=== PATIENT | male | born 1985 | race Caucasian/White ===

== ENCOUNTER 2021-09-15 14:57 | Emergency (ER) | payer OTHER ==
[2021-09-15] MEDS ORDERED: IBUPROFEN 600 MG TAB PO STA (15:44)
[2021-09-15] MEDS ORDERED: SODIUM CHLORIDE 0.9% 500 ML 500 ML IV ONE (15:46)
--- NOTE | 2021-09-15 15:51 | ED ---
General Adult HPI - General Chief complaint: Upper Respiratory Infection Stated complaint: Covid Positive,BRIAN Time Seen by Provider: 09/15/21 15:38 Source: RN notes reviewed, old records reviewed Mode of arrival: ambulatory Limitations: no limitations - History of Present Illness Initial comments: 36-year-old well-appearing male presents to the emergency room with fever, cough, congestion and body aches since last Thursday. He states that he tested positive on September 11 for coronavirus in a [facility]. He has not been vaccinated. He is requesting the monoclonal antibodies. He states he has been taking Tylenol and Motrin for fevers and body aches with no relief. He is also on clindamycin and Tylenol threes for a bad wisdom tooth. He denies any other medical history no ALLERGIES to medications. -: days(s) (7) Location: head, chest Radiation: non-radiation Severity scale (1-10): 4 Quality: aching (body aches) Consistency: constant Improves with: none Worsens with: none Associated Symptoms: cough, fever/chills, loss of appetite, malaise, nausea/vomiting, shortness of breath Treatments Prior to Arrival: NSAID, other (Clindamycin for a tooth infection, Tylenol 3, nsaids) - Related Data Home Medications Medication Instructions Recorded Confirmed Acetaminophen Tab [Tylenol Tab] 1,000 mg PO Q6HR PRN 09/15/21 09/15/21 Acetaminophen-Codeine 300-30mg 1 tab PO Q4-6H PRN 09/15/21 09/15/21 [Tylenol w/codeine #3] Ascorbic Acid/Multivit-Min 1,000 mg PO DAILY 09/15/21 09/15/21 [Emergen-C 1,000 mg Packet] Cholecalciferol [Vitamin D3 (25 25 mcg PO DAILY 09/15/21 09/15/21 Mcg = 1000 Iu)] Clindamycin HCl 300 mg PO TID 09/15/21 09/15/21 Ibuprofen [Advil] 400 mg PO Q8HR PRN 09/15/21 09/15/21 Multivitamins, Thera [Multivitamin 1 tab PO DAILY 09/15/21 09/15/21 (formulary)] guaiFENesin [Mucinex] 1,200 mg PO BID PRN 09/15/21 09/15/21 Allergies Allergy/AdvReac Type Severity Reaction Status Date / Time No Known Allergies Allergy Verified 09/15/21 17:09 Review of Systems ROS Statement: Those systems with pertinent positive or pertinent negative responses have been documented in the HPI. ROS Other: All systems not noted in ROS Statement are negative. Past Medical History Past Medical History: No Reported History History of Any Multi-Drug Resistant Organisms: None Reported Past Surgical History: No Surgical Hx Reported Past Psychological History: No Psychological Hx Reported Smoking Status: Former smoker Past Alcohol Use History: None Reported Past Drug Use History: None Reported General Exam Limitations: no limitations General appearance: alert, in no apparent distress Head exam: Present: atraumatic, normocephalic, normal inspection Eye exam: Present: normal appearance, EOMI ENT exam: Present: normal exam, normal oropharynx, mucous membranes moist Neck exam: Present: normal inspection, full ROM. Absent: tenderness, meningismus, lymphadenopathy, thyromegaly Respiratory exam: Present: rhonchi. Absent: respiratory distress, chest wall tenderness, accessory muscle use, decreased breath sounds Cardiovascular Exam: Present: tachycardia GI/Abdominal exam: Present: soft, normal bowel sounds. Absent: distended, tenderness, guarding, rebound, rigid Back exam: Present: normal inspection, full ROM. Absent: tenderness, CVA tenderness (R), CVA tenderness (L), rash noted Neurological exam: Present: alert, oriented X3, normal gait Psychiatric exam: Present: normal affect, normal mood Skin exam: Present: warm, dry, intact, normal color. Absent: rash, cyanosis, diaphoretic, petechiae, pallor Course Vital Signs 09/15/21 09/15/21 09/15/21 15:27 16:31 18:04 Temperature 101.8 F H 98.8 F Pulse Rate 113 H 82 Respiratory 24 20 20 Rate Blood Pressure 134/79 134/84 O2 Sat by Pulse 95 95 Oximetry Medical Decision Making - Medical Decision Making This is a well-appearing 36-year-old male that presents to the emergency room after testing positive for coronavirus September 11. His symptoms started September 08. He did send a copy of the positive results to the email given by the nurse. He was requesting the monoclonal antibody infusion. He tolerated the infusion well. His oxygen saturations 95%. Temperature is normal at discharge. He was instructed to return to the emergency room with any new or worsening symptoms. Vitamin C, vitamin D and seems to help with the pain support. Quarantine for 10 days from symptom onset and 24 hours without a fever. Case discussed with Dr. Wynn. Disposition Clinical Impression: COVID-19 Disposition: HOME SELF-CARE Condition: Good Instructions (If sedation given, give patient instructions): Coronavirus Disease 2019 (COVID-19) Additional Instructions: Take tylenol and/or Motrin as needed for body aches or fevers. Take vitamin C, vitamin D and zinc for immune health. Increase your fluid intake. Self quarantine for 10 days from symptom onset and 24 hours without a fever. Return to emergency room with any new or worsening symptoms. Is patient prescribed a controlled substance at d/c from ED?: No Referrals: None,Stated [Primary Care Provider] - 1-2 days
[2021-09-15] MEDS ORDERED: SOTROVIMAB (EUA) 500 MG in SODIUM CHLORIDE 0.9% 100 ML IVPB ONE (16:45)
[2021-09-15] MEDS ORDERED: SODIUM CHLORIDE 0.9% 50 ML IVPB ONE (16:45)
[2021-09-15 16:53] VITALS: RESP 20
[2021-09-15 18:05] VITALS: BP 134/84; PULSE 82; TEMP 98.8
== END 2021-09-15 18:32 | disposition home or self-care (01) ==
LOC: EC 14:57
DX: U07.1 COVID-19 (principal); Z87.891 Personal history of nicotine dependence
CPT/HCPCS: 99283; Q0247

== ENCOUNTER 2021-10-01 23:36 | Observation (INO) | payer OTHER ==
[2021-10-02] MEDS ORDERED: SODIUM CHLORIDE 0.9% 500 ML 500 ML IV STA (01:35)
--- NOTE | 2021-10-02 01:39 | ED ---
General Adult HPI - General Chief complaint: Chest Pain Stated complaint: feverish, anxiety Time Seen by Provider: 10/02/21 01:15 Source: patient Mode of arrival: EMS Limitations: no limitations - History of Present Illness Initial comments: This patient is a 36-year-old man who presents to be evaluated for constellation of symptoms that is been going on since the start of the month. The patient states that he had the onset of upper respiratory symptoms, cough, fevers and chills, headaches, body aches and had been diagnosed with [place] infection on September 11. He states that he was feeling a little worse, return here and was given the antibody infusion on September 15. Patient states that he has had symptoms going on since that time and then over the course of today he has felt warm sensation on his chest and he had a funny feeling in his left arm. The patient has not noted any leg pain or swelling. He has not had change in the cough. There has been no hemoptysis or dyspnea. -: days(s) Location: chest Radiation: extremity (Left arm) Quality: other (Warm sensation) Consistency: intermittent Improves with: none Worsens with: none Associated Symptoms: cough, fever/chills, headaches, malaise Treatments Prior to Arrival: none - Related Data Home Medications Medication Instructions Recorded Confirmed Acetaminophen Tab [Tylenol Tab] 1,000 mg PO Q6HR PRN 09/15/21 09/15/21 Acetaminophen-Codeine 300-30mg 1 tab PO Q4-6H PRN 09/15/21 09/15/21 [Tylenol w/codeine #3] Ascorbic Acid/Multivit-Min 1,000 mg PO DAILY 09/15/21 09/15/21 [Emergen-C 1,000 mg Packet] Cholecalciferol [Vitamin D3 (25 25 mcg PO DAILY 09/15/21 09/15/21 Mcg = 1000 Iu)] Clindamycin HCl 300 mg PO TID 09/15/21 09/15/21 Ibuprofen [Advil] 400 mg PO Q8HR PRN 09/15/21 09/15/21 Multivitamins, Thera [Multivitamin 1 tab PO DAILY 09/15/21 09/15/21 (formulary)] guaiFENesin [Mucinex] 1,200 mg PO BID PRN 09/15/21 09/15/21 Previous Rx's Medication Instructions Recorded Azithromycin [Zithromax Z-pack (6 250 mg PO DIRECTED #6 tab 10/02/21 tabs)] Dexamethasone 6 mg PO DAILY #14 tablet 10/02/21 Rivaroxaban [Xarelto Starter Pack] 0 mg PO DIRECTED 30 Days #1 10/02/21 packet Allergies Allergy/AdvReac Type Severity Reaction Status Date / Time No Known Allergies Allergy Verified 10/02/21 01:06 Review of Systems ROS Statement: Those systems with pertinent positive or pertinent negative responses have been documented in the HPI. ROS Other: All systems not noted in ROS Statement are negative. Constitutional: Reports: fever, chills, weakness Respiratory: Reports: cough. Denies: dyspnea, wheezes, hemoptysis Cardiovascular: Reports: as per HPI. Denies: palpitations, orthopnea, edema, syncope Gastrointestinal: Reports: diarrhea. Denies: abdominal pain, nausea, vomiting, constipation, melena, hematochezia Genitourinary: Denies: dysuria, hematuria Musculoskeletal: Reports: myalgia. Denies: back pain Skin: Denies: rash Neurological: Reports: headache. Denies: weakness, numbness Past Medical History Past Medical History: No Reported History History of Any Multi-Drug Resistant Organisms: None Reported Past Surgical History: No Surgical Hx Reported Past Psychological History: No Psychological Hx Reported Smoking Status: Former smoker Past Alcohol Use History: None Reported Past Drug Use History: None Reported General Exam General appearance: alert, in no apparent distress Head exam: Present: atraumatic, normocephalic Eye exam: Present: normal appearance. Absent: scleral icterus, conjunctival injection ENT exam: Present: normal oropharynx Neck exam: Present: normal inspection, full ROM Respiratory exam: Present: normal lung sounds bilaterally. Absent: respiratory distress, wheezes, rales, rhonchi, stridor Cardiovascular Exam: Present: regular rate, normal rhythm, normal heart sounds. Absent: systolic murmur, diastolic murmur, rubs, gallop GI/Abdominal exam: Present: soft. Absent: distended, tenderness, guarding, rebound, rigid Extremities exam: Present: normal inspection, normal capillary refill. Absent: pedal edema, calf tenderness Back exam: Present: normal inspection Neurological exam: Present: alert Skin exam: Present: warm, dry, intact, normal color. Absent: rash Course Vital Signs 10/02/21 01:08 Temperature 98.7 F Pulse Rate 94 Respiratory 20 Rate Blood Pressure 148/89 O2 Sat by Pulse 97 Oximetry EKG Findings - EKG Results: EKG: interpreted by ERMD, sinus rhythm (Rate 83 bpm), normal axis, normal QRS - Blocks, [place], Hypertrophy, ST Abn: Repolarization changes or abnormalities: Q-T interval prolongation Medical Decision Making - Lab Data Result diagrams: 10/02/21 02:16 10/02/21 02:16 Lab Results 10/02/21 10/02/21 10/02/21 Range/Units 02:16 02:16 02:16 WBC 9.0 (3.8-10.6) k/uL RBC 5.05 (4.30-5.90) m/uL Hgb 14.2 (13.0-17.5) gm/dL Hct 42.4 (39.0-53.0) % MCV 83.9 (80.0-100.0) fL MCH 28.0 (25.0-35.0) pg MCHC 33.4 (31.0-37.0) g/dL RDW 14.0 (11.5-15.5) % Plt Count 416 (150-450) k/uL MPV 6.6 Neutrophils % 53 % Lymphocytes % 31 % Monocytes % 11 % Eosinophils % 1 % Basophils % 1 % Neutrophils # 4.8 (1.3-7.7) k/uL Lymphocytes # 2.8 (1.0-4.8) k/uL Monocytes # 1.0 (0-1.0) k/uL Eosinophils # 0.1 (0-0.7) k/uL Basophils # 0.1 (0-0.2) k/uL PT 10.8 (9.0-12.0) sec INR 1.0 (<1.2) APTT 22.9 (22.0-30.0) sec D-Dimer 2.77 H (<0.60) mg/L FEU Sodium 136 L (137-145) mmol/L Potassium 4.2 (3.5-5.1) mmol/L Chloride 107 (98-107) mmol/L Carbon Dioxide 20 L (22-30) mmol/L Anion Gap 9 mmol/L BUN 14 (9-20) mg/dL Creatinine 0.67 (0.66-1.25) mg/dL Est GFR (CKD-EPI)AfAm >90 (>60 ml/min/1.73 sqM) Est GFR (CKD-EPI)NonAf >90 (>60 ml/min/1.73 sqM) Glucose 106 H (74-99) mg/dL Calcium 8.2 L (8.4-10.2) mg/dL Magnesium 2.0 (1.6-2.3) mg/dL Total Bilirubin 0.9 (0.2-1.3) mg/dL AST 57 (17-59) U/L ALT 157 H (4-49) U/L Alkaline Phosphatase 146 H (38-126) U/L Troponin I (0.000-0.034) ng/mL NT-Pro-B Natriuret Pep pg/mL Total Protein 6.8 (6.3-8.2) g/dL Albumin 3.5 (3.5-5.0) g/dL 10/02/21 10/02/21 Range/Units 02:16 02:16 WBC (3.8-10.6) k/uL RBC (4.30-5.90) m/uL Hgb (13.0-17.5) gm/dL Hct (39.0-53.0) % MCV (80.0-100.0) fL MCH (25.0-35.0) pg MCHC (31.0-37.0) g/dL RDW (11.5-15.5) % Plt Count (150-450) k/uL MPV Neutrophils % % Lymphocytes % % Monocytes % % Eosinophils % % Basophils % % Neutrophils # (1.3-7.7) k/uL Lymphocytes # (1.0-4.8) k/uL Monocytes # (0-1.0) k/uL Eosinophils # (0-0.7) k/uL Basophils # (0-0.2) k/uL PT (9.0-12.0) sec INR (<1.2) APTT (22.0-30.0) sec D-Dimer (<0.60) mg/L FEU Sodium (137-145) mmol/L Potassium (3.5-5.1) mmol/L Chloride (98-107) mmol/L Carbon Dioxide (22-30) mmol/L Anion Gap mmol/L BUN (9-20) mg/dL Creatinine (0.66-1.25) mg/dL Est GFR (CKD-EPI)AfAm (>60 ml/min/1.73 sqM) Est GFR (CKD-EPI)NonAf (>60 ml/min/1.73 sqM) Glucose (74-99) mg/dL Calcium (8.4-10.2) mg/dL Magnesium (1.6-2.3) mg/dL Total Bilirubin (0.2-1.3) mg/dL AST (17-59) U/L ALT (4-49) U/L Alkaline Phosphatase (38-126) U/L Troponin I <0.012 (0.000-0.034) ng/mL NT-Pro-B Natriuret Pep 17 pg/mL Total Protein (6.3-8.2) g/dL Albumin (3.5-5.0) g/dL Disposition Clinical Impression: COVID-19 Disposition: HOME SELF-CARE Instructions (If sedation given, give patient instructions): Coronavirus Disease 2019 (COVID-19) Prescriptions: Dexamethasone 6 mg PO DAILY #14 tablet Rivaroxaban [Xarelto Starter Pack] 0 mg PO DIRECTED 30 Days #1 packet Azithromycin [Zithromax Z-pack (6 tabs)] 250 mg PO DIRECTED #6 tab Is patient prescribed a controlled substance at d/c from ED?: No Referrals: Cong Kendall MD [Primary Care Provider] - 1-2 days
[2021-10-02 02:37] LABS: Basophils # (A) 0.1 k/uL (0-0.2); Basophils % (A) 1 %; Eosinophils # (A) 0.1 k/uL (0-0.7); Eosinophils % (A) 1 %; HCT 42.4 % (39.0-53.0); HGB 14.2 gm/dL (13.0-17.5); Lymphocytes # (A) 2.8 k/uL (1.0-4.8); Lymphocytes % (A) 31 %; MCHC 33.4 g/dL (31.0-37.0); MCV 83.9 fL (80.0-100.0); Mean Platelet Volume 6.6; Monocytes % (A) 11 %; Neutrophils # (A) 4.8 k/uL (1.3-7.7); Neutrophils % (A) 53 %; Platelet Count 416 k/uL (150-450); RBC 5.05 m/uL (4.30-5.90)
--- NOTE | 2021-10-02 02:41 | XR ---
EXAMINATION TYPE: XR chest 2V DATE OF EXAM: 10/02/2021 COMPARISON: NONE HISTORY: Chest pain TECHNIQUE: 2 views FINDINGS: Heart and mediastinum are normal. There is coarse interstitial infiltrate throughout the allan ngs. Mediastinum is normal. There is probably some bronchial adenopathy. IMPRESSION: Interstitial pneumonia. Normal heart. Airspace pneumonia also possible.
[2021-10-02 02:46] LABS: Partial Thromboplastin Time 22.9 sec (22.0-30.0); Prothrombin Time 10.8 sec (9.0-12.0)
[2021-10-02 02:48] LABS: ALT 157 U/L (4-49); AST 57 U/L (17-59); African American GFR (CKD) >90 (>60 ml/min/1.73 sqM); Albumin 3.5 g/dL (3.5-5.0); Alkaline Phosphatase 146 U/L (38-126); Anion Gap 9 mmol/L; Blood Urea Nitrogen 14 mg/dL (9-20); Calcium 8.2 mg/dL (8.4-10.2); Carbon Dioxide 20 mmol/L (22-30); Chloride 107 mmol/L (98-107); Glucose 106 mg/dL (74-99); Non-African American GFR(CKD) >90 (>60 ml/min/1.73 sqM); Potassium 4.2 mmol/L (3.5-5.1); Sodium 136 mmol/L (137-145); Total Bilirubin 0.9 mg/dL (0.2-1.3); Total Protein 6.8 g/dL (6.3-8.2)
--- NOTE | 2021-10-02 03:53 | CT ---
EXAMINATION TYPE: CT chest angio for PE DATE OF EXAM: 10/02/2021 COMPARISON: None HISTORY: pe CT DLP: 600.9 mGycm Automated exposure control for dose reduction was used. CONTRAST: Performed with IV Contrast, patient injected with 70 mL of Isovue 370. Images obtained from the thoracic inlet to the diaphragm with IV contrast. There are 3-D post process ed images. There is patchy extensive interstitial infiltrate throughout both lungs. There is no definite pulmona ry mass. There is no pleural effusion. Heart size is normal. There is no pericardial effusion. There are a few paratracheal lymph nodes up to 1 cm. There are bilateral multiple bronchial lymph nodes up to 1 cm. Thoracic aorta is intact. There is no aneurysm or dissection. There is normal contrast opacification of the central pulmonary arteries. There is suboptimal contras t density in the smaller branches of the pulmonary arteries. There is suggestion of filling defect in the smaller branches of the right lower lobe pulmonary arter y in the posterior basal segment. The thoracic spine is intact. Sternum is intact. There is no compression fracture. IMPRESSION: Extensive pulmonary infiltrates consistent with multifocal pneumonia. Mild mediastinal and bronchial adenopathy. No evidence of central pulmonary embolism. There is suggestion of a small filling defect in the poste rior basal segment right lower lobe pulmonary artery smaller branch. This is equivocal for embolism.
[2021-10-02] MEDS ORDERED: dexAMETHasone 2 MG TAB PO STA (04:29)
[2021-10-02] MEDS ORDERED: AZITHROMYCIN 500 MG TAB PO STA (04:29)
[2021-10-02] MEDS ORDERED: ENOXAPARIN 120 MG/0.8 ML SYRINGE SQ STA (06:20)
[2021-10-02] MEDS ORDERED: NALOXONE 0.4 MG/ML 1 ML VIAL IV PRN (07:11)
[2021-10-02] MEDS: SODIUM CHLORIDE 0.9% 1,000 ML IV SCH ×2 (08:54→21:39)
[2021-10-02] MEDS ORDERED: COLCHICINE 0.6 MG EACH PO SCH (09:00)
[2021-10-02] MEDS: ASCORBIC ACID 500 MG TAB PO SCH (10:03)
[2021-10-02] MEDS: CHOLECALCIFEROL 125 MCG (5000 IU) TABLET PO SCH (10:04)
[2021-10-02] MEDS: MULTIVITAMINS, THERA 1 EACH TAB PO SCH (10:04)
[2021-10-02] MEDS: PANTOPRAZOLE 40 MG TABLET PO SCH (10:04)
[2021-10-02] MEDS: ZINC SULFATE 220 MG CAP PO SCH (10:04)
--- NOTE | 2021-10-02 12:57 | US ---
EXAMINATION TYPE: US venous doppler duplex LE BI DATE OF EXAM: 10/02/2021 12:26 PM COMPARISON: NONE CLINICAL HISTORY: ?PE . CT chest angio for PE today 10/02/2021 - shows no evidence of PE. COVID- 19 patient; patient states having no symptoms for DVT. SIDE PERFORMED: Bilateral TECHNIQUE: The lower extremity deep venous system is examined utilizing real time linear array sonog kareem with graded compression, doppler sonography and color-flow sonography. VESSELS IMAGED: Common Femoral Vein Deep Femoral Vein Greater Saphenous Vein * Femoral Vein Popliteal Vein Small Saphenous Vein * Proximal Calf Veins (* superficial vessels) Right Leg: Negative for DVT Left Leg: Negative for DVT IMPRESSION: Grayscale, color doppler, spectral doppler imaging performed of the deep veins of the lo wer extremities. There is normal flow, compressibility, vascular waveforms.
--- NOTE | 2021-10-02 13:28 | P.CNPUL ---
History of Present Illness Consult date: 10/02/21 Requesting physician: Yulissa Meza Reason for consult: dyspnea, abnormal CXR/CT Chief complaint: Left-sided chest warmth, shortness of breath History of present illness: This is a 36-year-old male patient who follows with Dr. Kendall as his primary care physician. He has a history of COVID-19 infection back on 09/11/2021. He received monoclonal antibodies on 09/15/2021. He had ongoing issues with shortness of breath cough and congestion. His PCP had started him on antibiotics, colchicine, melatonin, multivitamins, antidepressants, albuterol, Xarelto starter pack. He presented to the emergency room this morning with complaints of warmth radiating in his left side of the chest and high blood pressure. White count 9.0. Hemoglobin 14.2. D-dimer 2.77. Sodium 136. Potassium 4.2. Creatinine 0.67. Glucose 106. AST 57. ALT 157. Troponin negative times one. ProBNP 17. Pro-calcitonin 0.08. Hernandez virus by PCR not detected. His x-ray reveals evidence of coarse interstitial infiltrates consistent with COVID-19 pneumonia. Computed tomography scan of the chest revealed extensive pulmonary infiltrates consistent with multifocal pneumonia/COVID-19 pneumonia. There is a questionable filling defect of the right lower lobe pulmonary artery and the patient is being admitted for pulmonary embolism. Dopplers of the lower extremities are negative for DVT bilaterally. He is seen today in consultation in the emergency room. He is currently sitting up in a stretcher. Awake and alert in no acute distress. 18 in good O2 saturation in the mid 90s on room air. He's been afebrile. Somewhat hypertensive. Slightly tachycardic. Review of Systems REVIEW OF SYSTEMS: CONSTITUTIONAL: States high blood pressure. Denies any recent significant weight loss or weight gain. EYES: Denies change in vision. EARS, NOSE, MOUTH, THROAT: Denies headaches, denies sore throat. CARDIOVASCULAR: Warm sensation in the left side of his chest, no chest pain, palpitations or syncopal episodes. RESPIRATORY: Occasional shortness of breath, cough, congestion no hemoptysis. GASTROINTESTINAL: Denies change in appetite, denies abdominal pain GENITOURINARY: Denies hematuria, denies infections. MUSKULOSKELETAL: Denies pain, denies swelling. INTEGUMENTARY: Denies rash, denies eczema. NEUROLOGICAL: Denies recent memory loss, no recent seizure activity. PSYCHIATRIC: Denies anxiety, denies depression. HEMATOLOGIC/LYMPHATIC: Denies anemia, denies enlarged lymph nodes. Past Medical History Past Medical History: Asthma, GERD/Reflux Additional Past Medical History / Comment(s): COVID + 09/11/21, bronchitis History of Any Multi-Drug Resistant Organisms: None Reported Past Surgical History: No Surgical Hx Reported Additional Past Surgical History / Comment(s): R hydrocele surgery. Past Anesthesia/Blood Transfusion Reactions: No Reported Reaction Past Psychological History: No Psychological Hx Reported Additional Psychological History / Comment(s): Pt resides with his mother and step father. He is independent. Smoking Status: Former smoker Past Alcohol Use History: Occasional Additional Past Alcohol Use History / Comment(s): Pt smoked for approximately 6 months in 2005. Past Drug Use History: None Reported - Past Family History Father Family Medical History: Cancer, Coronary Artery Disease (CAD), Diabetes Mellitus, Hypertension Mother Family Medical History: Hypertension Additional Family Medical History / Comment(s): Had cholecystectomy Medications and Allergies Home Medications Medication Instructions Recorded Confirmed Type Albuterol Inhaler [Ventolin Hfa 2 puff INHALATION RT-Q4H PRN 10/02/21 10/02/21 History Inhaler] Ascorbic Acid [Vitamin C chew] 1,000 mg PO DAILY 10/02/21 10/02/21 History Azithromycin [Zithromax Z-pack (6 250 mg PO DIRECTED #6 tab 10/02/21 Rx tabs)] Cholecalciferol (Vitamin D3) 125 mcg PO DAILY 10/02/21 10/02/21 History [Vitamin D3 (125 MCG = 5,000 IU)] Colchicine [Colcrys] 0.6 mg PO DAILY 10/02/21 10/02/21 History Dexamethasone 6 mg PO DAILY #14 tablet 10/02/21 Rx Melatonin 10 mg PO HS 10/02/21 10/02/21 History Multivit-Min/Folic/Vit K/Lycop 1 tab PO DAILY 10/02/21 10/02/21 History [Men's Multivitamin Tablet] Omeprazole Magnesium [PriLOSEC OTC] 20 mg PO DAILY 10/02/21 10/02/21 History Rivaroxaban [Xarelto Starter Pack] 0 mg PO DIRECTED 30 Days #1 10/02/21 Rx packet Turmeric/Turmeric Root Extract 1 cap PO DAILY 10/02/21 10/02/21 History [Turmeric 450-50 mg Capsule] Zinc Gluconate [Zinc] 50 mg PO DAILY 10/02/21 10/02/21 History fluvoxaMINE [Luvox] 50 mg PO BID 10/02/21 10/02/21 History Allergies Allergy/AdvReac Type Severity Reaction Status Date / Time No Known Allergies Allergy Verified 10/02/21 06:52 Physical Exam Vitals: Vital Signs Temp Pulse Resp BP Pulse Ox 10/02/21 13:00 113 H 18 154/108 94 L 10/02/21 10:07 98.1 F 111 H 22 159/101 94 L 10/02/21 08:22 83 18 167/99 94 L 10/02/21 06:10 92 18 142/96 92 L 10/02/21 01:08 98.7 F 94 20 148/89 97 Intake and Output 10/01/21 10/02/21 10/02/21 22:59 06:59 14:59 Other: Weight 108.862 kg 108.862 kg GENERAL EXAM: Alert, pleasant 36-year-old gentleman, on room air, comfortable in no apparent distress. HEAD: Normocephalic. EYES: Normal reaction of pupils, equal size. NOSE: Clear with pink turbinates. THROAT: No erythema or exudates. NECK: No masses, no JVD. CHEST: No chest wall deformity. LUNGS: Equal air entry with no crackles, wheeze, rhonchi or dullness. CVS: S1 and S2 normal with no audible murmur, regular rhythm. ABDOMEN: No hepatosplenomegaly, normal bowel sounds, no guarding or rigidity. SPINE: No scoliosis or deformity SKIN: No rashes CENTRAL NERVOUS SYSTEM: No focal deficits, tone is normal in all 4 extremities. EXTREMITIES: There is no peripheral edema. No clubbing, no cyanosis. Peripheral pulses are intact. Results - Laboratory Findings CBC and BMP: 10/02/21 02:16 10/02/21 02:16 PT/INR, D-dimer PT 10.8 sec (9.0-12.0) 10/02/21 02:16 INR 1.0 (<1.2) 10/02/21 02:16 D-Dimer 2.77 mg/L FEU (<0.60) H 10/02/21 02:16 Abnormal lab findings: Abnormal Labs 10/02/21 10/02/21 02:16 02:16 D-Dimer 2.77 H Sodium 136 L Carbon Dioxide 20 L Glucose 106 H Calcium 8.2 L ALT 157 H Alkaline Phosphatase 146 H - Diagnostic Findings Chest x-ray: image reviewed CT scan - chest: image reviewed Assessment and Plan Assessment: 1 Hypertension and a warm sensation of his left chest and left arm. Recently had COVID-19 on 09/11/2021. Treated with monoclonal antibodies on 09/15/2021. Currently testing negative for COVID-19. Chest x-ray shows residual bilateral infiltrates of COVID-[address] scan revealed patchy opacities bilater ally. Pro calcitonin negative. Questionable small subsegmental right lower lobe filling defect. Doppler of the lower extremities negative for DVT. Had been on Xarelto in the outpatient setting. Currently on room air. He is not vaccinated. 2 Recent COVID-19 infection on 09/11/2021, received monoclonal antibiotics on 09/15/2021 Plan: The patient was seen and evaluated Stable from the pulmonary standpoint, on room air Doubt PE, no DVT bilaterally Continue Xarelto as an outpatient order Home once cleared by medicine Follow-up with his PCP We will see as needed I, the cosigning physician, performed a history & physical examination of the patient. Lungs sounds are clear. Maintaining good O2 saturations in the 90s on room air. I discussed the assessment and plan of care with my nurse practitioner, Jennifer Lane. I attest to the above consultation as dictated by her. Time with Patient: Greater than 30
[2021-10-02] MEDS: ALBUTEROL NEBULIZED 2.5 MG/3 ML INHALATION PRN ×2 (14:58→20:49)
--- NOTE | 2021-10-02 15:35 | P.HPIM ---
History of Present Illness H&P Date: 10/02/21 Chief Complaint: Dyspnea 36-year-old man with medical history of anxiety, recent Covid infection presented with shortness of breath. Patient was diagnosed with Covid on 09/11, and reports increasing shortness of breath. His outpatient physician had started him on dexamethasone, Xarelto, colchicine, azithromycin. However, patient reports that despite these medications he's had increasing shortness of breath. Upon arrival to the emergency room, patient underwent computed tomography scan of the chest which showed possible pulmonary emboli in the subsegmental region. Originally, patient was going to be discharged, however, the emergency room physician had concerns due to desaturation while ambulating. Otherwise, patient is 95% plus on room air, slightly tachycardic and hypertensive. Patient does appear to be anxious. Denies fevers, chills, nausea, vomiting, chest pain, palpitations, abdominal pain, dysuria, numbness. Reports generalized weakness. Review of Systems All Systems reviewed and pertinent positives and negatives noted in HPI, all other symptoms are negative Past Medical History Past Medical History: Asthma, GERD/Reflux Additional Past Medical History / Comment(s): COVID + 09/11/21, bronchitis History of Any Multi-Drug Resistant Organisms: None Reported Past Surgical History: No Surgical Hx Reported Additional Past Surgical History / Comment(s): R hydrocele surgery. Past Anesthesia/Blood Transfusion Reactions: No Reported Reaction Past Psychological History: No Psychological Hx Reported Additional Psychological History / Comment(s): Pt resides with his mother and step father. He is independent. Smoking Status: Former smoker Past Alcohol Use History: Occasional Additional Past Alcohol Use History / Comment(s): Pt smoked for approximately 6 months in 2005. Past Drug Use History: None Reported - Past Family History Father Family Medical History: Cancer, Coronary Artery Disease (CAD), Diabetes Mellitus, Hypertension Mother Family Medical History: Hypertension Additional Family Medical History / Comment(s): Had cholecystectomy Medications and Allergies Home Medications Medication Instructions Recorded Confirmed Type Albuterol Inhaler [Ventolin Hfa 2 puff INHALATION RT-Q4H PRN 10/02/21 10/02/21 History Inhaler] Ascorbic Acid [Vitamin C chew] 1,000 mg PO DAILY 10/02/21 10/02/21 History Azithromycin [Zithromax Z-pack (6 250 mg PO DIRECTED #6 tab 10/02/21 Rx tabs)] Cholecalciferol (Vitamin D3) 125 mcg PO DAILY 10/02/21 10/02/21 History [Vitamin D3 (125 MCG = 5,000 IU)] Colchicine [Colcrys] 0.6 mg PO DAILY 10/02/21 10/02/21 History Dexamethasone 6 mg PO DAILY #14 tablet 10/02/21 Rx Melatonin 10 mg PO HS 10/02/21 10/02/21 History Multivit-Min/Folic/Vit K/Lycop 1 tab PO DAILY 10/02/21 10/02/21 History [Men's Multivitamin Tablet] Omeprazole Magnesium [PriLOSEC OTC] 20 mg PO DAILY 10/02/21 10/02/21 History Rivaroxaban [Xarelto Starter Pack] 0 mg PO DIRECTED 30 Days #1 10/02/21 Rx packet Turmeric/Turmeric Root Extract 1 cap PO DAILY 10/02/21 10/02/21 History [Turmeric 450-50 mg Capsule] Zinc Gluconate [Zinc] 50 mg PO DAILY 10/02/21 10/02/21 History fluvoxaMINE [Luvox] 50 mg PO BID 10/02/21 10/02/21 History Allergies Allergy/AdvReac Type Severity Reaction Status Date / Time No Known Allergies Allergy Verified 10/02/21 06:52 Physical Exam Osteopathic Statement: *. No significant issues noted on an osteopathic structural exam other than those noted in the History and Physical/Consult. Vitals: Vital Signs Temp Pulse Resp BP Pulse Ox 10/02/21 15:12 112 H 10/02/21 14:58 112 H 10/02/21 13:00 113 H 18 154/108 94 L 10/02/21 10:07 98.1 F 111 H 22 159/101 94 L 10/02/21 08:22 83 18 167/99 94 L 10/02/21 06:10 92 18 142/96 92 L 10/02/21 01:08 98.7 F 94 20 148/89 97 Intake and Output 10/02/21 10/02/21 10/02/21 06:59 14:59 22:59 Other: Weight 108.862 kg 108.862 kg Gen: awake, alert HEENT: normocephalic, atraumatic, good hearing acuity, moist mucous membranes Resp: good air exchange, breathing comfortably with no accessory muscle use CVS: good distal perfusion x 4, GI: soft, NTTP, ND : no SPT, no CVAT, villar catheter not present MSK: no pitting edema, no clubbing Neuro: non-focal, moving all extremities Psych: cooperative, anxious mood Results CBC & Chem 7: 10/02/21 02:16 10/02/21 02:16 Labs: Abnormal Lab Results - Last 24 Hours (Table) 10/02/21 10/02/21 Range/Units 02:16 02:16 D-Dimer 2.77 H (<0.60) mg/L FEU Sodium 136 L (137-145) mmol/L Carbon Dioxide 20 L (22-30) mmol/L Glucose 106 H (74-99) mg/dL Calcium 8.2 L (8.4-10.2) mg/dL ALT 157 H (4-49) U/L Alkaline Phosphatase 146 H (38-126) U/L Thrombosis Risk Factor Assmnt - Choose All That Apply Any of the Below Risk Factors Present?: Yes Each Factor Represents 1 point: Obesity (BMI >25), Serious lung disease incl. pneumonia (< 1month) Other Risk Factors: No Other congenital or acquired thrombophilia - If yes, enter type in comment: No Thrombosis Risk Factor Assessment Total Risk Factor Score: 2 Thrombosis Risk Factor Assessment Level: Low Risk Assessment and Plan Assessment: Covid 19 -Pulmonary consulted by the emergency room -Observation for one night -Continue home vitamin D, zinc, vitamin C -Continue home albuterol when necessary -Continue home xarelto -Can discontinue dexamethasone at this time -Can discontinue antibiotics at this time Anxiety -Continue home fluvoxamine Patient is a full code
[2021-10-02] MEDS ORDERED: ACETAMINOPHEN TAB 325 MG TAB PO PRN (20:29)
[2021-10-02] MEDS ORDERED: MELATONIN 5 MG TABLET PO SCH (21:00)
[2021-10-03 01:09] VITALS: RESP 18
[2021-10-03 09:32] VITALS: BP 132/83; PULSE 81; TEMP 97.6
[2021-10-03] MEDS ORDERED: ALBUTEROL HFA INHALER INHALATION PRN (10:47)
[2021-10-03] MEDS: PANTOPRAZOLE 40 MG TABLET PO SCH (11:48)
[2021-10-03] MEDS: MULTIVITAMINS, THERA 1 EACH TAB PO SCH (11:48)
[2021-10-03] MEDS: ASCORBIC ACID 500 MG TAB PO SCH (11:48)
[2021-10-03] MEDS: ZINC SULFATE 220 MG CAP PO SCH (11:49)
[2021-10-03] MEDS: CHOLECALCIFEROL 125 MCG (5000 IU) TABLET PO SCH (11:50)
--- NOTE | 2021-10-03 12:34 | P.DS ---
Providers Date of admission: 10/02/21 07:11 Expected date of discharge: 10/03/21 Attending physician: Yulissa Meza MD Consults: 10/02/21 07:11 Consult Physician Routine Consulting Provider: Reid Magdaleno Consult Reason/Comments: Covid pneumonia Do you want consulting provider notified?: Yes Primary care physician: [facility] Course: Covid 19 -Pulmonary consulted by the emergency room, and patient admitted to observation. he remained on room air throughout his night's stay. Discontinued abx. He is on a short course of steroids and azithromycin. Also taking Xarelto per his PCP. He was also on colchicine for unclear reasons, and this was discontinued. Pulmonary embolism read on CTA was felt to be unclear, but regardless he is on xarelto per PCP as mentioned. Anxiety -Continued home fluvoxamine Assessment: Gen: awake, alert HEENT: normocephalic, atraumatic, good hearing acuity, moist mucous membranes Resp: good air exchange, breathing comfortably with no accessory muscle use CVS: good distal perfusion x 4, GI: soft, NTTP, ND : no SPT, no CVAT, villar catheter not present MSK: no pitting edema, no clubbing Neuro: non-focal, moving all extremities Psych: cooperative, anxious mood Plan - Discharge Summary Discharge Rx Participant: No New Discharge Prescriptions: New Azithromycin [Zithromax Z-pack (6 tabs)] 250 mg PO DIRECTED #6 tab Dexamethasone 6 mg PO DAILY #14 tablet Rivaroxaban [Xarelto Starter Pack] 0 mg PO DIRECTED 30 Days #1 packet Continue Zinc Gluconate [Zinc] 50 mg PO DAILY Albuterol Inhaler [Ventolin Hfa Inhaler] 2 puff INHALATION RT-Q4H PRN PRN Reason: Shortness Of Breath Melatonin 10 mg PO HS Cholecalciferol (Vitamin D3) [Vitamin D3 (125 MCG = 5,000 IU)] 125 mcg PO DAILY Ascorbic Acid [Vitamin C chew] 1,000 mg PO DAILY fluvoxaMINE [Luvox] 50 mg PO BID Turmeric/Turmeric Root Extract [Turmeric 450-50 mg Capsule] 1 cap PO DAILY Multivit-Min/Folic/Vit K/Lycop [Men's Multivitamin Tablet] 1 tab PO DAILY Omeprazole Magnesium [PriLOSEC OTC] 20 mg PO DAILY Discontinued Colchicine [Colcrys] 0.6 mg PO DAILY Discharge Medication List Albuterol Inhaler [Ventolin Hfa Inhaler] 2 puff INHALATION RT-Q4H PRN 10/02/21 [History] Ascorbic Acid [Vitamin C chew] 1,000 mg PO DAILY 10/02/21 [History] Azithromycin [Zithromax Z-pack (6 tabs)] 250 mg PO DIRECTED #6 tab 10/02/21 [Rx] Cholecalciferol (Vitamin D3) [Vitamin D3 (125 MCG = 5,000 IU)] 125 mcg PO DAILY 10/02/21 [History] Dexamethasone 6 mg PO DAILY #14 tablet 10/02/21 [Rx] Melatonin 10 mg PO HS 10/02/21 [History] Multivit-Min/Folic/Vit K/Lycop [Men's Multivitamin Tablet] 1 tab PO DAILY 10/02/21 [History] Omeprazole Magnesium [PriLOSEC OTC] 20 mg PO DAILY 10/02/21 [History] Rivaroxaban [Xarelto Starter Pack] 0 mg PO DIRECTED 30 Days #1 packet 10/02/21 [Rx] Turmeric/Turmeric Root Extract [Turmeric 450-50 mg Capsule] 1 cap PO DAILY 10/02/21 [History] Zinc Gluconate [Zinc] 50 mg PO DAILY 10/02/21 [History] fluvoxaMINE [Luvox] 50 mg PO BID 10/02/21 [History] Follow up Appointment(s)/Referral(s): Cong Kendall MD [Primary Care Provider] - 1-2 days Patient Instructions/Handouts: Coronavirus Disease 2019 (COVID-19) Discharge Disposition: HOME SELF-CARE
--- NOTE | 2021-10-24 10:13 | CDI ---
Dear Dr Loyd, The H&P notes the patient's recent Covid infection on Sep 11 and presented on this visit to the EC with shortness of breath. Pt is taking Azithromycin and Dexamethasome. Labs came back negative on this visit. Chest x-ray shows residual infiltrates of Covid. Pt did receive monoclonal anitbodies on Sep 15 (previous visit). Please clarify if the PNA is a residual from the previous COVID infection and or if the patient developed a new active COVID infection? Thank you for your time and consideration, Irma Ramos Residual in my opinion MTDD
== END 2021-10-03 15:27 | disposition home or self-care (01) ==
LOC: EC 23:36 → 6NMEDSUR 10-02 07:11
PROVIDERS: ADMIT Internal Medicine; ATTEND Internal Medicine
DX: J18.9 Pneumonia, unspecified organism (principal); U09.9 Post COVID-19 condition, unspecified; F41.9 Anxiety disorder, unspecified; I10 Essential (primary) hypertension; J45.909 Unspecified asthma, uncomplicated; R51.9 Headache, unspecified; K21.9 Gastro-esophageal reflux disease without esophagitis; J98.4 Other disorders of lung; E66.9 Obesity, unspecified; Z68.35 Body mass index [BMI] 35.0-35.9, adult; Z87.891 Personal history of nicotine dependence; Z79.01 Long term (current) use of anticoagulants; Z79.899 Other long term (current) drug therapy; Z82.49 Family history of ischemic heart disease and other diseases of the circulatory system; Z83.3 Family history of diabetes mellitus; Z80.9 Family history of malignant neoplasm, unspecified
CPT/HCPCS: 96361 ×2; 96365; 96372; 99285; 36415; 94640 ×2; 93005; 85379; 83880; 80053; 83735; 84484; 85025; 85610; 85730; 84145; 87635; 71046; 93970; 71275; G0378 ×2; J0696; J1650; J8540; Q9967

== ENCOUNTER → 2024-08-05 | Outpatient (CLI) | payer BC ==
--- NOTE | 2024-08-05 15:14 | US ---
EXAMINATION TYPE: US liver DATE OF EXAM: 08/05/2024 COMPARISON: NONE CLINICAL INDICATION: Male, 39 years old with history of R74.01 ELEVATED LFT'S; High cholesterol and p re diabetic TECHNIQUE: Grayscale and color Doppler imaging of the right upper quadrant was performed. FINDINGS: EXAM MEASUREMENTS: Liver Length: 17.5 cm Gallbladder Wall: 0.2 cm CBD: 0.4 cm Right Kidney: 11.8 x 5.4 x 5.4 cm POWER STATION OPERATOR NOTES: Pancreas: wnl Liver: Increased attenuation, decreased visualization of vessels suggestive of fatty infiltrate Gallbladder: Echogenic foci without shadowing that appears to be adherent to gallbladder wall Evidence for sonographic Tripp's sign: No CBD: wnl Right Kidney: wnl The visualized pancreas is within normal limits. Diffuse increased attenuation of the liver without s ervice nodularity suggesting cirrhosis. This appearance limits evaluation for small hepatic masses. N o gross evidence of mass. Echogenic foci without shadowing appear adherent to the gallbladder wall. T his measures up to 5 mm. Negative sonographic Tripp's sign. Common bile duct is within normal limits . Right kidney demonstrates no shadowing calculi, hydronephrosis, or solid mass. IMPRESSION: 1. Marked hepatic steatosis. 2. Gallbladder polyps measuring up to 5 mm. In a low risk patient, no follow up is recommended. In a high-risk patient consider follow-up ultrasound in 6 months. [facility], , 08/05/2024 3:12 PM
== END | disposition home or self-care (01) ==
LOC: RADUSWWP 14:49
PROVIDERS: ATTEND Family Medicine
CPT/HCPCS: 76705